=== PATIENT | male | born 2005 | race Caucasian/White ===

== ENCOUNTER 2025-01-28 15:30 | Emergency (ER) | payer OTHER, SELFPAY ==
--- NOTE | ~2025-01-28 | XR_ITS ---
XR chest 2V Ordering provider: Luba Leary APRN History: 19 years Male with . cough x 1 week, sob . Comparison: None. FINDINGS: MEDIASTINUM: The cardiac silhouette is not enlarged. LUNGS: No infiltrates, effusions or pneumothorax. OTHER: No free air under the diaphragm. IMPRESSION: No acute cardiopulmonary pathology. Reviewed, dictated and finalized at location A. [employer] ADVISER
[2025-01-28 15:47] VITALS: BP 134/82; PULSE 97; RESP 16; TEMP 36.5; O2SAT 97
--- NOTE | 2025-01-28 15:56 | ED.URI ---
HPI - URI/Sore Throat General Chief Complaint: Upper Respiratory Infection Stated Complaint: Flu like symptoms History of Present Illness HPI Narrative: 19-year-old male presents today with the complaints of cough, body aches, feeling feverish, and fatigue for 1 week. Patient also has shortness of breath. Patient states there has been no improvement since symptoms started 1 week ago. Patient Girlfriend was sick 2 weeks ago. Related Data Allergies Allergy/AdvReac Type Severity Reaction Status Date / Time No Known Allergies Allergy Verified 01/28/25 15:46 Review of Systems Review of Systems: All systems reviewed & are unremarkable except as noted in HPI and below Eyes: Eyes: Reports as per HPI ENT: Reports as per HPI Cardiovascular: Cardiovascular: Reports as per HPI Respiratory: Respiratory: Reports as per HPI Genitourinary: Genitourinary: Reports as per HPI Musculoskeletal: Musculoskeletal: Reports as per HPI Integumentary/Breasts: Skin/Breast: Reports as per HPI Neurologic: Reports as per HPI Psychiatric: Psychiatric: Reports as per HPI Endocrine: Endocrine: Reports as per HPI Hematologic/Lymphatic: Hematologic/Lymphatic: Reports as per HPI Allergic/Immunologic: Allergic/Immunologic: Reports as per HPI Exam Const: General: cooperative, healthy appearing, comfortable, no acute distress and well developed Orientation/consciousness: patient oriented x3 HENMT: Head: normal to inspection Eyes: General: appearance normal, both eyes and all related structures Resp: Effort & Inspection: normal respiratory effort and able to speak in complete sentences Auscultation: wheezes (course wheezing) expiratory wheezes and lower bilaterally Cardio: Rate: regular rate Rhythm: regular rhythm Heart sounds: S1 normal heart sound present and S2 normal heart sound present Skin: General skin exam: normal color Neuro: General: patient oriented x3 Cognition (Neuro): normal cognition Speech: normal speech Psych: Mental Status: mental status grossly normal Course Course Level of Care: Express Care Visit Vital Signs Vital signs: Vital Signs Temperature 97.7 F 01/28/25 15:47 Pulse Rate 97 01/28/25 15:47 Respiratory Rate 16 01/28/25 15:47 Blood Pressure 134/82 01/28/25 15:47 Pulse Oximetry 97 01/28/25 15:47 Temperature 97.7 F 01/28/25 15:47 Pulse Rate 97 01/28/25 15:47 Respiratory Rate 16 01/28/25 15:47 Blood Pressure 134/82 01/28/25 15:47 Pulse Oximetry 97 01/28/25 15:47 MDM - URI/Sore Throat MDM Narrative Medical decision making narrative: 19-year-old male HPI as noted. Differentials include but not limited to upper respiratory infection, pneumonia, influenza, COVID. Chest x-ray to rule out pneumonia and influenza and COVID swabs completed also. Differential Diagnosis Differential diagnosis: Likely upper respiratory infection, bronchitis, influenza and other Medical Records Attestation: I reviewed the patient's medical records. Lab Data Attestation: I reviewed the patient's lab results. Labs: Lab Results 01/28/25 Range/Units 16:07 POC Influenza A Ag Negative (Negative) POC Influenza B Ag Negative (Negative) POC SARS CoV-2 Ag Negative (Negative) Imaging Data Attestation: I personally reviewed and interpreted this imaging study as follows: Radiologist's impression: Impressions Chest X-Ray 01/28/25 16:53 IMPRESSION: No acute cardiopulmonary pathology. Discharge Plan Discharge Clinical Impression: Bronchitis Patient Disposition: Home, Self-Care Condition: Stable Instructions: Antibiotic Form, Acute Bronchitis (ED) Additional Instructions: Returns for negative for influenza and COVID today. Her chest x-ray did not show any pneumonia. UR wheezing. Chest. Albuterol 2 puffs every 4-6 hours as needed for the next 2-3 days please to around the clock layer awake. Guaifenesin as needed for thinning out any secretions. Benzonatate as needed for cough. Take prednisone as prescribed. Patient Language: Icelandic Prescriptions: New albuterol sulfate [Ventolin HFA] 90 mcg/actuation HFA aerosol inhaler 2 puff inhalation QID PRN (Reason: shortness of breath or wheezing) Qty: 8.5 0RF benzonatate 100 mg capsule 100 mg PO TID PRN (Reason: cough) Qty: 30 0RF prednisone 20 mg tablet 40 mg PO DAILY Qty: 10 0RF Follow-up/Referrals: UNKNOWN,DOCTOR [Primary Care Provider] - Time of Disposition: 17:00
[2025-01-28 16:09] LABS: EDCOVIDSCREEN Negative (Negative); EDINFLUASCREEN Negative (Negative); EDINFLUBSCREEN Negative (Negative)
== END 2025-01-28 17:05 | disposition home or self-care (01) ==
PROVIDERS: Emergency Provider Nurse Practitioner Family
DX: J40 Bronchitis, not specified as acute or chronic (principal); Z20.822 Contact with and (suspected) exposure to COVID-19
CPT/HCPCS: 71046; 87426; 87804; 99203; G0463

== ENCOUNTER 2025-09-15 11:29 | Emergency (ER) | payer OTHER, SELFPAY ==
--- NOTE | ~2025-09-15 | XR_ITS ---
EXAMINATION: XR chest 2V 09/15/2025 12:37 INDICATION: Cough for 3 or 4 days. Shortness of breath. TECHNIQUE:Frontal and lateral images of the chest were obtained. COMPARISON: 01/28/2025 FINDINGS: The lungs are clear. The cardiomediastinal silhouette is within normal limits. There are no pleural effusions. There is no pneumothorax suspected. IMPRESSION: 1: NO ACUTE CARDIOPULMONARY DISEASE. Reviewed, dictated and finalized at location Q.
[2025-09-15 11:39] VITALS: BP 150/102; PULSE 89; RESP 16; TEMP 36.8; O2SAT 96
--- NOTE | 2025-09-15 12:27 | ED.GENADULT ---
HPI - General Adult General Chief complaint: Upper Respiratory Infection Stated complaint: SORE THROAT/WHEEZING/SOB Source: patient Mode of arrival: ambulatory Limitations: no limitations History of Present Illness HPI narrative: This is a 19-year-old male who presented for evaluation of sick symptoms for last 3-4 days. Symptoms include productive of yellow sputum, shortness of breath, wheezing, chills, chest pressure and vomiting. No recent sick contacts to his knowledge. He does vape and uses marijuana. He tried taking Tylenol for his symptoms. Related Data Allergies Allergy/AdvReac Type Severity Reaction Status Date / Time No Known Allergies Allergy Verified 09/15/25 11:56 Review of Systems Review of Systems: CONSTITUTIONAL: Reports chills. Denies fever or sweats. EYES: Denies visual changes, redness, or discharge. ENT: Denies rhinorrhea, congestion, sore throat, or otalgia. CARDIOVASCULAR: Denies palpitations, or edema. RESPIRATORY: Reports cough, wheezing, shortness of breath GASTROINTESTINAL: Reports vomiting. Denies abdominal pain or diarrhea. GENITOURINARY: Denies dysuria or hematuria. SKIN: Denies rash or itching. MUSCULOSKELETAL: Denies back pain, joint pain, or myalgia. NEUROLOGIC: Denies headache, numbness, dizziness, or weakness. PSYCHIATRIC: Denies anxiety or depression. [facility] Past Medical History Medical History (Updated 09/15/25 @ 12:58 by Andi Ferreira APRN, FRANCES) No pertinent past medical history Surgical History Surgical History No pertinent past surgical history Family History Family History Mother Family history non-contributory Social History Social History Smoking status: Current every day smoker Tobacco type: e-cigarettes/vaping Substance use: current Substance use type: marijuana Gender identity (if verbalized by the patient): Male Sexual Orientation (if Verbalized by the Patient): Straight or Heterosexual Spiritual care concerns: No Exam Narrative: GENERAL: Well-appearing, well-nourished, and in no acute distress. HEAD: Normocephalic, atraumatic. EYES: PERRLA and EOMI. ENT: Nares clear, no rhinorrhea or epistaxis. Mucous membranes moist. Oropharynx without tonsillar hypertrophy exudate or other lesions. Bilateral TMs pearly rausch nonbulging NECK: Supple. No adenopathy or masses. No carotid bruits or JVD CHEST: Cough present on exam. Clear to auscultation. No respiratory distress. No wheezes rales or rhonchi HEART: Regular rate and rhythm. No murmur heard. Normal peripheral pulses. ABDOMEN: Soft, nontender, nondistended, normal active bowel sounds. EXTREMITIES: Normal range of motion. No edema. SKIN: Warm, dry, no rash. NEURO: No focal deficits. Alert and oriented x3. PSYCH: Normal mood and affect. Course Course Emergency Course: This is a 19 year old male who presented for evaluation of respiratory symptoms. COVID and influenza negative. Chest x-ray negative. Exam consistent with acute viral respiratory infection. Will discharge with prednisone and Tessalon. Albuterol has cause tachycardia in the past for him. Advised on smoking cessation. Follow up with primary provider. To the ER for worsening symptoms. Patient in agreement with plan of care. Level of Care: Express Care Visit Vital Signs Vital signs: Vital Signs Temperature 36.8 C 09/15/25 11:39 Pulse Rate 89 09/15/25 11:39 Respiratory Rate 16 09/15/25 11:39 Blood Pressure 150/102 H 09/15/25 11:39 Pulse Oximetry 96 09/15/25 11:39 Oxygen Delivery Room Air 09/15/25 11:39 Temperature 36.8 C 09/15/25 11:39 Pulse Rate 89 09/15/25 11:39 Respiratory Rate 16 09/15/25 11:39 Blood Pressure 150/102 H 09/15/25 11:39 Pulse Oximetry 96 09/15/25 11:39 Oxygen Delivery Room Air 09/15/25 11:39 Medical Decision Making Vital Signs Vital Signs: Vital Signs Temperature 36.8 C 09/15/25 11:39 Pulse Rate 89 09/15/25 11:39 Respiratory Rate 16 09/15/25 11:39 Blood Pressure 150/102 H 09/15/25 11:39 Pulse Oximetry 96 09/15/25 11:39 Oxygen Delivery Room Air 09/15/25 11:39 Temperature 36.8 C 09/15/25 11:39 Pulse Rate 89 09/15/25 11:39 Respiratory Rate 16 09/15/25 11:39 Blood Pressure 150/102 H 09/15/25 11:39 Pulse Oximetry 96 09/15/25 11:39 Oxygen Delivery Room Air 09/15/25 11:39 Lab Data Labs: Lab Results 09/15/25 Range/Units 12:47 POC Influenza A Ag Negative (Negative) POC Influenza B Ag Negative (Negative) POC SARS CoV-2 Ag Negative (Negative) Imaging Data Radiologist's impression: EXAMINATION: XR chest 2V 09/15/2025 12:37 INDICATION: Cough for 3 or 4 days. Shortness of breath. TECHNIQUE:Frontal and lateral images of the chest were obtained. COMPARISON: 01/28/2025 FINDINGS: The lungs are clear. The cardiomediastinal silhouette is within normal limits. There are no pleural effusions. There is no pneumothorax suspected. IMPRESSION: 1: NO ACUTE CARDIOPULMONARY DISEASE. Discharge Plan Discharge Clinical Impression: Upper respiratory infection, viral Patient Disposition: Home Condition: Stable Instructions: Antibiotic Form, Upper Respiratory Infection (DC) Patient Language: Stateless Prescriptions: New prednisone 50 mg tablet 50 mg PO DAILY Qty: 5 0RF benzonatate 200 mg capsule 200 mg PO TID PRN (Reason: cough) Qty: 30 0RF Follow-up/Referrals: Pollo Villalobos DO [Physician, Family Practice] Time of Disposition: 12:59
[2025-09-15 12:49] LABS: EDCOVIDSCREEN Negative (Negative); EDINFLUASCREEN Negative (Negative); EDINFLUBSCREEN Negative (Negative)
== END 2025-09-15 13:04 | disposition home or self-care (01) ==
PROVIDERS: Emergency Provider Nurse Practitioner
DX: J06.9 Acute upper respiratory infection, unspecified (principal); Z20.822 Contact with and (suspected) exposure to COVID-19; F17.290 Nicotine dependence, other tobacco product, uncomplicated; F12.90 Cannabis use, unspecified, uncomplicated
CPT/HCPCS: 71046; 87426; 87804; 99213; G0463